=== PATIENT | female | born 1990 | race Two or more races ===

== ENCOUNTER 2022-12-09 07:46 | Inpatient (IN) | payer BC ==
[2022-12-09 09:25] VITALS: BMI 36.9
[2022-12-09] MEDS ORDERED: ELECTROLYTE-148 SOLN 1,000 ML IV SCH (09:30)
[2022-12-09 09:53] LABS: BASO % 0.5 % (0-2.0); EOS % 0.5 % (0-4.5); HEMATOCRIT 34.2 % (32.4-45.2); HEMOGLOBIN 11.6 GM/dL (10.7-15.3); LYMPH % 27.2 % (8-40); MCH 27.4 pg (25.7-33.7); MCHC 33.8 g/dl (32.0-36.0); MEAN PLT VOLUME 8.6 fl (7.5-11.1); MONO % 9.4 % (3.8-10.2); NEUT % 62.4 % (42.8-82.8); PLATELET COUNT 221 10^3/uL (134-434); RBC 4.22 M/mm3 (3.60-5.2); RDW 15.9 % (11.6-15.6); WHITE BLOOD COUNT 9.8 K/mm3 (4.0-10.0)
[2022-12-09 09:55] LABS: INR 0.95 (0.83-1.09)
[2022-12-09 09:58] LABS: ACTIVATED PTT 23.9 SECONDS (25.2-36.5)
[2022-12-09 10:10] LABS: CALCIUM 8.7 mg/dL (8.5-10.1)
[2022-12-09 10:11] LABS: BLOOD UREA NITROGEN 12.1 mg/dL (7-18)
[2022-12-09 10:14] LABS: CREATININE 0.6 mg/dL (0.55-1.3)
[2022-12-09] MEDS ORDERED: FENTANYL/BUPIVACAINE/NS/PF - PCEA - 50 ML DISP.SYRIN EP ONE (10:18)
[2022-12-09] MEDS ORDERED: NALOXONE HCL 0.4 MG/ML VIAL IVPUSH PRN (10:23)
[2022-12-09] MEDS ORDERED: FENTANYL/BUPIVACAINE/NS/PF - PCEA - 50 ML DISP.SYRIN EP SCH (10:30)
[2022-12-09] MEDS ORDERED: FENTANYL CITRATE/PF 50 MCG/ML VIAL ONE (10:32)
[2022-12-09 11:05] LABS: HIV INTERPRETATION NEGATIVE (NEGATIVE)
[2022-12-09 11:41] LABS: CORD HCO3 22.7 mmHg (20-29); CORD PCO2 88.2 mmHg (30-78); CORD pH 7.029 (7.14-7.44)
[2022-12-09 11:43] LABS: CORD HCO3 23.2 mmHg (20-29); CORD PCO2 74.3 mmHg (30-78); CORD pH 7.113 (7.14-7.44)
[2022-12-09] MEDS ORDERED: AZITHROMYCIN IVPB 500 MG/250 ML BAG IVPB ONE ×2 (12:00→14:00)
[2022-12-09] MEDS: OXYTOCIN 20 UNITS in 0.9% NS 20 UNIT/1,000 ML INFUS.BAG IV SCH ×2 (12:04→17:16)
[2022-12-09] MEDS ORDERED: METHYLERGONOVINE MALEATE 0.2 MG/1 ML AMP IM PRN (12:06)
[2022-12-09] MEDS: IBUPROFEN 800 MG/8 ML IJ IVPB SCH ×2 (12:15→18:47)
[2022-12-09] MEDS ORDERED: ONDANSETRON 4 MG/2 ML VIAL IVPUSH PRN (12:41)
[2022-12-09] MEDS ORDERED: morphine SULFATE/PF 1 MG/2 ML (2cc Syringe - QUVA) EP ONE (12:41)
[2022-12-09] MEDS ORDERED: KETOROLAC TROMETHAMINE 30 MG/1 ML VIAL IVPUSH ONE (12:42)
[2022-12-09] MEDS ORDERED: ACETAMINOPHEN INJECTION 100 ML IVPB ONE (14:05)
[2022-12-09] MEDS: ACETAMINOPHEN 1000 MG/100 ML BAG IVPB SCH ×2 (14:06→18:47)
[2022-12-09] MEDS ORDERED: ceFAZolin 2 GRAM PREMIX BAG IVPB SCH (18:00)
[2022-12-09] MEDS: CEFAZOLIN SODIUM 2 GM in DEXTROSE 5%-WATER 100 ML IVPB SCH (18:32)
[2022-12-09] MEDS ORDERED: ZOLPIDEM TARTRATE 5 MG TABLET PO ONE (23:45)
[2022-12-10] MEDS: metroNIDAZOLE 250 MG TABLET PO SCH ×4 (00:05→21:38)
[2022-12-10] MEDS ORDERED: oxyCODONE HCL 5 MG TABLET PO PRN ×2 (00:07)
[2022-12-10] MEDS: ACETAMINOPHEN 1000 MG/100 ML BAG IVPB SCH ×2 (00:32→06:46)
[2022-12-10] MEDS: IBUPROFEN 800 MG/8 ML IJ IVPB SCH ×3 (00:45→12:38)
[2022-12-10] MEDS: CEFAZOLIN SODIUM 2 GM in DEXTROSE 5%-WATER 100 ML IVPB SCH ×2 (02:08→09:07)
[2022-12-10 08:22] LABS: BASO % 0.2 % (0-2.0); EOS % 0.2 % (0-4.5); HEMATOCRIT 31.2 % (32.4-45.2); HEMOGLOBIN 10.4 GM/dL (10.7-15.3); LYMPH % 13.5 % (8-40); MCH 27.3 pg (25.7-33.7); MCHC 33.4 g/dl (32.0-36.0); MEAN CELL VOLUME 81.8 fl (80-96); MEAN PLT VOLUME 8.6 fl (7.5-11.1); MONO % 7.1 % (3.8-10.2); PLATELET COUNT 192 10^3/uL (134-434); RBC 3.81 M/mm3 (3.60-5.2); RDW 16.4 % (11.6-15.6); WHITE BLOOD COUNT 14.4 K/mm3 (4.0-10.0)
[2022-12-10] MEDS ORDERED: BISACODYL 10 MG SUPP.RECT RC PRN (12:07)
[2022-12-10] MEDS: IBUPROFEN 600 MG TABLET (FP) PO SCH ×2 (13:54→18:24)
[2022-12-10] MEDS: ACETAMINOPHEN 325 MG TABLET (FP) PO SCH ×2 (16:20→19:50)
[2022-12-10] MEDS: SIMETHICONE 80 MG TAB.CHEW (FP) PO PRN (18:25)
[2022-12-10] MEDS: CEPHALEXIN MONOHYDRATE 500 MG CAPSULE (UD) PO SCH (21:38)
[2022-12-11] MEDS: IBUPROFEN 600 MG TABLET (FP) PO SCH ×4 (02:04→20:25)
[2022-12-11] MEDS: ACETAMINOPHEN 325 MG TABLET (FP) PO SCH ×4 (02:04→20:26)
[2022-12-11] MEDS: SIMETHICONE 80 MG TAB.CHEW (FP) PO PRN ×3 (06:02→20:22)
[2022-12-11] MEDS: metroNIDAZOLE 250 MG TABLET PO SCH ×2 (06:02→14:34)
[2022-12-11] MEDS: CEPHALEXIN MONOHYDRATE 500 MG CAPSULE (UD) PO SCH (11:26)
[2022-12-12] MEDS: IBUPROFEN 600 MG TABLET (FP) PO SCH ×5 (00:30→23:31)
[2022-12-12] MEDS: ACETAMINOPHEN 325 MG TABLET (FP) PO SCH ×4 (01:20→22:59)
[2022-12-12 07:52] LABS: BASO % 0.4 % (0-2.0); EOS % 2.6 % (0-4.5); HEMATOCRIT 28.2 % (32.4-45.2); HEMOGLOBIN 9.7 GM/dL (10.7-15.3); LYMPH % 35.1 % (8-40); MCH 27.9 pg (25.7-33.7); MCHC 34.4 g/dl (32.0-36.0); MEAN CELL VOLUME 81.3 fl (80-96); MEAN PLT VOLUME 8.2 fl (7.5-11.1); MONO % 6.9 % (3.8-10.2); PLATELET COUNT 241 10^3/uL (134-434); RBC 3.47 M/mm3 (3.60-5.2); RDW 16.3 % (11.6-15.6); WHITE BLOOD COUNT 10.3 K/mm3 (4.0-10.0)
[2022-12-13] MEDS: ACETAMINOPHEN 325 MG TABLET (FP) PO SCH ×3 (02:53→15:03)
[2022-12-13] MEDS: IBUPROFEN 600 MG TABLET (FP) PO SCH ×3 (07:00→18:47)
[2022-12-13 08:27] VITALS: BP 134/86; PULSE 84; RESP 16; TEMP 98.8
== END 2022-12-13 19:00 | disposition home or self-care (01) | DRG 788 ==
LOC: JLDR 07:46 → J3W 16:30
PROVIDERS: ADMIT Obstetrics & Gynecology; ATTEND Obstetrics & Gynecology
PROC: 10D00Z1 Extraction of Products of Conception, Low, Open Approach (ICD-10-PCS; principal; 2022-12-09)
DX: O36.8330 Maternal care for abnormalities of the fetal heart rate or rhythm, third trimester, not applicable or unspecified (principal); O69.1XX0 Labor and delivery complicated by cord around neck, with compression, not applicable or unspecified; Z3A.38 38 weeks gestation of pregnancy; Z37.0 Single live birth
CPT/HCPCS: 36415; 36600; 74190-TC-FY; 80048; 82803; 85025; 85610; 85730; 86780; 86850; 86900; 86901; 87389; 88307-TC; C9803-CS; U0003; U0005

== ENCOUNTER 2023-04-26 04:21 | Day surgery (SDC) | payer BC ==
[2023-04-24 15:22] VITALS: BMI 34.4
[2023-04-26] MEDS ORDERED: MIDAZOLAM HCL 2 MG/2 ML SINGLE DOSE VIAL ONE ×2 (10:10→10:20)
[2023-04-26] MEDS ORDERED: LIDOCAINE 1%/EPI 1:100000 (20 ML MULTI DOSE VIAL) IJ ONE (10:30)
[2023-04-26] MEDS ORDERED: IODINE/POTASSIUM IODIDE 5%/10% 14 ML BOTTLE NR ONE (10:32)
[2023-04-26] MEDS ORDERED: FERRIC SUBSULFATE 500 ML BOTTLE TP ONE (10:45)
[2023-04-26] MEDS ORDERED: KETOROLAC TROMETHAMINE 30 MG/1 ML VIAL IVPUSH ONE (11:06)
[2023-04-26] MEDS ORDERED: ACETAMINOPHEN 1000 MG/100 ML BAG IVPB ONE (11:06)
[2023-04-26] MEDS ORDERED: ONDANSETRON 4 MG/2 ML VIAL IVPUSH PRN (11:06)
[2023-04-26] MEDS ORDERED: oxyCODONE HCL 5 MG TABLET PO PRN (11:06)
[2023-04-26] MEDS ORDERED: KETOROLAC TROMETHAMINE 30 MG/1 ML VIAL ONE (11:12)
[2023-04-26] MEDS ORDERED: ACETAMINOPHEN INJECTION 100 ML IVPB ONE (11:12)
[2023-04-26] MEDS ORDERED: LACTATED RINGERS SOLUTION 1,000 ML IV SCH (11:15)
[2023-04-26 12:27] VITALS: RESP 18; TEMP 98.2
[2023-04-26 13:30] VITALS: BP 129/66; PULSE 73
== END 2023-04-26 13:45 | disposition home or self-care (01) ==
LOC: JASU-SURG 04:21
PROVIDERS: ATTEND Obstetrics & Gynecology
PROC: 0UBC7ZX Excision of Cervix, Via Natural or Artificial Opening, Diagnostic (ICD-10-PCS; principal; 2023-04-26 10:00)
DX: D06.9 Carcinoma in situ of cervix, unspecified (principal)
CPT/HCPCS: 81025; 88305-TC; 88307-TC; 88341-TC; 88342-TC; 94760